=== PATIENT | female | born 1965 | race Caucasian/White ===

== ENCOUNTER 2019-11-20 11:51 | Outpatient (CLI) | payer BC, SELFPAY ==
[2019-11-20 12:11] LABS: Hematocrit 41.8 % (37.0-47.0)
== END 2019-11-20 11:52 | disposition home or self-care (01) ==
LOC: ANHSURGERY 11:52
PROVIDERS: Anesthesiology; PCP Internal Medicine; Visit Provider Student in an Organized Health Care Education/Training Program
DX: N93.9 Abnormal uterine and vaginal bleeding, unspecified (principal)
CPT/HCPCS: 36415; 85014; 85018

== ENCOUNTER 2019-11-26 00:20 | Outpatient (CLI) | payer BC, SELFPAY ==
[2019-11-26 20:03] LABS: SARS-CoV-2 RNA PCR Negative
== END 2019-11-26 00:21 | disposition home or self-care (01) ==
LOC: ANHCOVIDDT 00:21
PROVIDERS: PCP Internal Medicine; Visit Provider Student in an Organized Health Care Education/Training Program
DX: Z01.812 Encounter for preprocedural laboratory examination (principal); Z11.59 Encounter for screening for other viral diseases
CPT/HCPCS: 87635; C9803; U0003

== ENCOUNTER 2019-11-28 01:33 | Day surgery (SDC) | payer BC, SELFPAY ==
[2019-11-19 13:49] VITALS: BMI 23.6
--- NOTE | 2019-11-27 15:52 | PM.IMHP ---
H&P: HPI History of Present Illness Chief complaint: menorrhagia Narrative: Ashanti Tomas is a 53 year old female with a history of menorrhagia. Patient is likely perimenopausal. She was previously taking OCPs and self d/c'd OCPs in the spring. She was doing well and did not have a menses until 05/2019. This menses was extremely heavy and painful. She reported saturating numerous pads and at one point, she reported changing pads approximately every 15 minutes. She also reported the passage of large blood clots. Bleeding was so profuse that patient was seen in the ED. She was prescribed Lysteda with helped with acute management of menorrhagia. She was restarted on OCPs and has experienced regular menses since then, however, states that they are still extremely heavy. States that her menses are embarrassing and she soaks through tampons as well as outer clothing. She also reports PMS like symptoms and cramping week prior to and during menses. She desires surgical management with an endometrial ablation as next step in management. Reports feeling well today without complaints. Review of Systems Review of Systems: All systems reviewed & are unremarkable except as noted in HPI and below Constitutional: Constitutional: Reports as per HPI, Reports no additional constitutional complaints, Denies chills, Denies fever(s), Denies headache(s) and Denies night sweats Eyes: Eyes: Reports as per HPI and Reports no additional eye complaints ENT: Reports system reviewed and no additional complaints, except as documented, Reports as per HPI, Reports Normal hearing present and Denies headache(s) Cardiovascular: Cardiovascular: Reports as per HPI, Reports no additional cardiovascular complaints, Denies chest pain and Denies dyspnea Respiratory: Respiratory: Reports as per HPI, Reports no additional respiratory complaints, Denies cough and Denies dyspnea Gastrointestinal: Gastrointestinal: Reports as per HPI, Reports no additional gastrointestinal complaints, Denies abdominal pain, Denies change in bowel habits, Denies change in stool character, Denies nausea and Denies vomiting Genitourinary: Genitourinary: Reports no additional female genitourinary complaints, Reports as per HPI, Denies abnormal vaginal bleeding, Denies genital lesions, Reports menorrhagia, Denies hot flashes, Denies dyspareunia, Reports dysmenorrhea, Denies pelvic pain, Denies sexual dysfunction, Denies urinary incontinence, Denies vaginal discharge, Denies vaginal dryness and Denies vaginal odor Musculoskeletal: Musculoskeletal: Reports no additional musculoskeletal complaints and Reports as per HPI Integumentary/Breasts: Skin/Breast: Reports system reviewed and no additional complaints, except as docu, Reports as per HPI, Denies breast pain and Denies nipple discharge Neurologic: Reports system reviewed and no additional complaints, except as documented, Reports as per HPI, Reports Normal hearing present and Denies headache(s) Psychiatric: Psychiatric: Reports no additional psychiatric complaints, Reports as per HPI, Denies anxiety and Denies depression Endocrine: Endocrine: Reports no additional endocrine complaints and Reports as per HPI Hematologic/Lymphatic: Hematologic/Lymphatic: Reports no additional hematologic/lymphatic complaints and Reports as per HPI Allergic/Immunologic: Allergic/Immunologic: Reports no additional allergic/immunologic complaints and Reports as per HPI [facility] Social History Social History Smoking status: Never smoker Second hand tobacco smoke exposure: No Smoking end date: 05/23/86 Alcohol intake: current Drinks per week: 5 Substance use: never Gender identity (if verbalized by the patient): Female Spiritual care concerns: No Meds Home Medications and Allergies Home Medications Medication Instructions Recorded Confirmed Type calcium carbonate-vitamin D3 600 1 cap PO DAILY
--- NOTE | 2019-11-28 09:18 | P.PNAN_ITS ---
Anes - Initial Pre Proc Eval Procedure: Operation Date: 11/28/19 11:00 Proposed Procedures p Hysteroscopy Dilation And Curettage With Maddie, Possible MyoSure - Michaela Rossi MD Date/Time: 11/28/19 09:18 Surgeon: Michaela Rossi MD Pre Op Diagnosis: menorrhagia Patient Data Age: 53 Gender: F Height: 5 ft 8 in Weight: 70.31 kg Allergies Allergy/AdvReac Type Severity Reaction Status Date / Time No Known Allergies Allergy Mild Verified 11/20/19 11:25 Home Medications Medication Instructions Recorded Confirmed Type calcium carbonate-vitamin D3 600 1 cap PO DAILY 05/30/19 11/19/19 History mg calcium-200 unit capsule desog-e.estradiol/e.estradiol 0.15 1 tablet PO DAILY #84 tablet 10/11/19 11/19/19 Rx mg-0.02 mg(21)/e.estrad 0.01 mg(5) tablet loratadine-pseudoephedrine 1 tablet PO Q12H 11/19/19 11/19/19 History [Claritin-D 12 Hour] multivitamin 1 tablet PO DAILY 11/19/19 11/19/19 History Patient hx anesthesia problems: none Family hx anesthesia problems: none PMFSH Past Medical History Medical History IBS (irritable bowel syndrome) Vaginal delivery Surgical History Surgical History H/O colonoscopy No significant past surgical history [place] teeth removed Family History Family History Father Family history of hypercholesterolemia Hypertension Mother Family history of hypercholesterolemia Hypertension Grandparent Carcinoma of colon Family history of malignant neoplasm of breast Other Diabetes mellitus Social History Social History Smoking status: Never smoker Second hand tobacco smoke exposure: No Smoking end date: 05/23/86 Alcohol intake: current Drinks per week: 5 Substance use: never Gender identity (if verbalized by the patient): Female Spiritual care concerns: No Anes - Eval Final PreProcedure Day of Procedure 11/28/19 09:18 Patient weight: normal Heart: regular rate and rhythm Lungs: clear to auscultation Airway: Mallampati scale class II Neurological: alert and oriented Last oral intake: >/= 8 hours ASA classification: II Emergent: no Anesthetic plan: proceed Anesthesia type and monitoring: general GIVS and standard monitoring Informed Consent: The patient's anesthetic plan and its attendant risks and benefits were discussed with the patient/family/POA. Questions were solicited and answers provided to the satisfaction of the patient/family/POA.
[2019-11-28] MEDS: LACTATED RINGERS 1,000 ML 30 ML IV CONT ×2 (09:40→12:12)
[2019-11-28 09:45] VITALS: BP 129/69; PULSE 72; RESP 18; TEMP 37.6; O2SAT 100
[2019-11-28] MEDS: ACETAMINOPHEN 500 MG TABLET 1000 MG PO (09:59)
--- NOTE | 2019-11-28 10:59 | WPDHPUPDATE1 ---
History and Physical Update Update Date/Time: 11/28/19 10:59 History and Physical has been reviewed, including an updated exam of the patient. There are NO changes in the patient's condition. Risks, benefits, and alternatives have been discussed and questions answered. Patient agrees to proceed with procedure.
[2019-11-28] MEDS: KETOROLAC 30 MG/ML VIAL (*BKC) IV PUSH (11:34)
[2019-11-28 12:12] VITALS: BP 120/76; PULSE 62; RESP 16; O2SAT 99
[2019-11-28 12:45] VITALS: BP 140/73; PULSE 48; RESP 12
--- NOTE | 2019-11-28 12:50 | PM.PROC ---
Procedure Note - Detailed Date of procedure: 11/28/19 Pre-op diagnosis: menorrhagia Post-op diagnosis: same Procedure performed: Hysteroscopy Dilation and curettage Endometrial ablation with Maddie Description of procedure: The patient was taken to the operating room where she self-transferred to the operating room table. She was placed in dorsal supine position. Anesthesia was administered and found to be adequate. The patient was repositioned in dorsal lithotomy position with the use of Benjamin stirrups. She was prepped and draped in usual sterile fashion. A red rubber catheter was used to drain the bladder of 125 cc of yellow urine. A bivalve speculum was inserted into the vagina. The cervix was well visualized. The anterior lip of the cervix was grasped with a single-tooth tenaculum. A paracervical block was performed with 1% plain lidocaine. 5 cc of lidocaine was administered on either side for a total of 10 cc. The cervix was then sounded to 8 cm. The cervix was serially dilated to accommodate a hysteroscope. The hysteroscope was introduced into the endometrial cavity. A general survey was performed. A minimal amount of fluffy tissue was noted. Bilateral tubal ostia were visualized. In the midline of the endometrial cavity, there appeared to be some dense adhesions. Several pictures were taken. The hysteroscope was removed. A medium-size rigid curette was used to perform a curettage. All quadrants of the endometrial cavity were explored. A minimal amount of tissue was obtained and prepared to be sent to pathology for analysis. The Maddie endometrial ablation device was then opened on the sterile field. The appropriate settings were input on the hand-held device and the array was introduced into the endometrial cavity and deployed. The cervical balloon was insufflated. An integrity check was completed and passed by the Maddie console. After the integrity check was passed successfully, the ablation procedure started automatically and ran for the preset time of 120 seconds. After completion of the ablation procedure, the array was collapsed and the cervical balloon was desufflated. The device was removed. The tenaculum was removed from the anterior lip of the cervix. A moderate amount of brisk bleeding from one of the tenaculum puncture sites was noted. Monsel's was applied, however, insufficient. Two [id number] sutures using 3-0 Vicryl were placed ensuring excellent hemostasis. The remainder of the vagina was cleansed and dried and the speculum was removed. The patient was cleansed and dried and taken out of the dorsal lithotomy position. She was awakened from anesthesia without difficulty and transferred to the recovery room in stable condition. The patient tolerated the procedure well. All sponge, lap, and instrument counts were correct at the end of the procedure. Anesthesia: MAC Surgeon: Michaela Rossi MD Estimated blood loss (mL): 30 IV fluids (mL): 1,000 Urine output (mL): 125 Drains: No Packing: No Pathology: yes (endometrial curetting) Complications: No immediate complications Condition: stable Disposition: same day Findings: Hysteroscopic fluids: 700cc in/650cc out
[2019-11-28 13:05] VITALS: BP 142/76; PULSE 48; RESP 12
== END 2019-11-28 13:17 | disposition home or self-care (01) ==
PROVIDERS: PCP Internal Medicine; Visit Provider Student in an Organized Health Care Education/Training Program
PROC: 0U5B8ZZ Destruction of Endometrium, Via Natural or Artificial Opening Endoscopic (ICD-10-PCS; CPT 58563; principal; 2019-11-28 11:00)
DX: N92.0 Excessive and frequent menstruation with regular cycle (principal); N84.0 Polyp of corpus uteri; K58.9 Irritable bowel syndrome, unspecified
CPT/HCPCS: 58563; 87635; 88305; A9270; C9803; J1885; J2250; J2405; J2704; J3010; J7030; J7120; U0003

== ENCOUNTER → 2020-03-27 16:14 | Outpatient (CLI) | payer BC, SELFPAY ==
--- NOTE | ~2020-03-27 | MM_ITS ---
EXAMINATION: MM screening sara BI w jered HISTORY: Screening TECHNIQUE: Craniocaudal and mediolateral oblique 3-D tomosynthesis images were obtained and synthetic 2-D images were generated. CAD analysis was submitted and interpreted. COMPARISON: Comparison to multiple prior studies sequentially, with oldest reviewed study dated 08/05. BREAST PARENCHYMAL COMPOSITION: The breasts are extremely dense, which lowers the sensitivity of mamm ography. FINDINGS: There is no evidence of suspicious mass, calcification, or architectural distortion to sugg est malignancy in either breast. There has been no suspicious interval change. IMPRESSION: 1. No mammographic evidence of malignancy. 2. Recommend routine screening mammography in one year. BI-RADS Category 1: Negative Reviewed, dictated and finalized at location A. [employer]
== END ==
PROVIDERS: PCP Internal Medicine; Visit Provider Student in an Organized Health Care Education/Training Program
DX: Z12.31 Encounter for screening mammogram for malignant neoplasm of breast (principal)
CPT/HCPCS: 77063; 77067

== ENCOUNTER → 2020-12-01 11:19 | Outpatient (CLI) | payer BC, SELFPAY ==
--- NOTE | ~2020-12-01 | US_ITS ---
EXAMINATION: US pelvic complete w TV EXAM DATE: 12/01/2020 11:51 INDICATION: N93.9 - Abnormal uterine and vaginal bleeding, unspecified . Ablation one year ago. TECHNIQUE: Pelvic transabdominal sonogram was performed. There are multiple grayscale and Doppler im ages available for interpretation. Comparison is made to prior examination from 06/11/2019. FINDINGS: Uterus measures 9.7 x 4.6 x 6.3 cm, probably with several small fibroids, up to 1.9 cm. En dometrial stripe measures 5 mm, within normal limits. There is no free pelvic fluid. Right adnexa: The ovary measures 2.4 x 1.2 x 2.4 cm and is morphologically normal. Ovarian vascular f low confirmed. Left adnexa: The ovary measures 3.1 x 1.7 x 3.7 cm and is morphologically normal, contains the domina nt physiologic follicle. Ovarian vascular flow confirmed. IMPRESSION: 1. Small fibroids. Reviewed, dictated and finalized at location A. IMPRESSION: 1. Small fibroids.
== END ==
PROVIDERS: PCP Internal Medicine; Visit Provider Student in an Organized Health Care Education/Training Program
DX: N93.9 Abnormal uterine and vaginal bleeding, unspecified (principal); D25.9 Leiomyoma of uterus, unspecified
CPT/HCPCS: 76830; 76856

== ENCOUNTER 2021-01-26 14:30 | Emergency (ER) | payer BC, SELFPAY ==
--- NOTE | ~2021-01-26 | XR_ITS ---
EXAMINATION: XR wrist LT min 3V DATE: 01/26/2021 14:43 INDICATION: Left wrist pain and swelling. Fall. TECHNIQUE: 4 views of left wrist were obtained. COMPARISON: None. FINDINGS: There is a comminuted fracture of distal radius with involvement of the distal articular morales rface. There is less than 1 mm step-off at the distal articular surface. Ulnar styloid is intact. The re is mild osteoarthritis of first carpometacarpal joint. IMPRESSION: 1. Comminuted fracture of distal radius in near-anatomic alignment. Reviewed, dictated and finalized at location A.
[2021-01-26 14:34] VITALS: BP 156/85; PULSE 67; RESP 20; TEMP 36.9; O2SAT 100
--- NOTE | 2021-01-26 15:05 | ED.GENADULT ---
HPI - General Adult General Chief complaint: Extremity Injury, Upper Stated complaint: lt wrist injury Source: patient Mode of arrival: ambulatory Limitations: no limitations History of Present Illness HPI narrative: Patient is a 55-year-old female presents to urgent care via POV for evaluation of a left wrist injury that occurred yesterday while running. Patient reports she excellently tripped on a crack causing her to fall on her left outstretched hand. She reports her wrist is swollen, painful, and bruised. Symptoms improved with ice and ibuprofen. Movement worsens pain. She describes pain at rest as a dull ache and a shooting pain with movement. Current pain level is 6-7 out of 10 on a pain scale. Related Data Home Medications Medication Instructions Recorded Confirmed calcium carbonate-vitamin D3 600 1 cap PO DAILY 05/30/19 11/28/19 mg calcium-200 unit capsule multivitamin 1 tablet PO DAILY 11/19/19 11/28/19 Allergies Allergy/AdvReac Type Severity Reaction Status Date / Time No Known Allergies Allergy Mild Verified 11/20/20 10:39 Review of Systems Review of Systems: Pertinent negatives: fever, chills, sweats, change in appetite, poor p.o. intake, malaise, rash, warmth, numbness, tingling, loss of sensation, deformity, decreased range of motion, weakness, difficulty with ambulation/coordination, nausea, vomiting, lymphadenopathy, shortness of breath, chest pain, heart palpitations, and heart murmur. [facility] Past Medical History Medical History IBS (irritable bowel syndrome) Vaginal delivery Surgical History Surgical History H/O colonoscopy No significant past surgical history S/P endometrial ablation [place] teeth removed Family History Family History Father Family history of hypercholesterolemia Hypertension Mother Family history of hypercholesterolemia Hypertension Grandparent Carcinoma of colon Family history of malignant neoplasm of breast Other Diabetes mellitus Social History Social History Smoking status: Never smoker Second hand tobacco smoke exposure: No Smoking end date: 05/23/86 Alcohol intake: current Drinks per week: 5 Substance use: never Gender identity (if verbalized by the patient): Female Spiritual care concerns: No Exam Narrative: GENERAL: Well-appearing, well-nourished, and in no acute distress. HEAD: Normocephalic, atraumatic. NECK: Supple. No Lymphadenopathy or nuchal rigidity appreciated. CHEST: Bilateral lung carlos are clear to auscultation. No respiratory distress. No evidence of cough or pleuritic cp upon examination. HEART: Regular rate and rhythm. No murmur, gallop, or rub heard. EXTREMITIES: Lateral aspect of left wrist is moderately edematous. There is also a small contusion noted to lateral aspect of left wrist. Mild pain is elicited with all active/passive ROM. No evidence of decreased ROM, cyanosis, laceration, abrasion, deformity, rash, or puncture. No evidence of dislocation, ligament laxity, effusion, or pain at rest. Pulses palpable at 2+, strength 5/5, and cap refill < 3 seconds in affected extremity. DTRs normal. Gait normal. SKIN: Warm, dry, no rash. NEURO: No focal deficits. Alert and oriented x3. SPECIAL OBSERVATIONS: Smiling. Laughing Course Vital Signs Vital signs: Vital Signs Temperature 98.4 F 01/26/21 14:34 Pulse Rate 01/26/21 14:34 Respiratory Rate 01/26/21 14:34 Blood Pressure 156/85 H 01/26/21 14:34 Pulse Oximetry 100 01/26/21 14:34 Temperature 98.4 F 01/26/21 14:34 Pulse Rate 01/26/21 14:34 Respiratory Rate 01/26/21 14:34 Blood Pressure 156/85 H 01/26/21 14:34 Pulse Oximetry 100 01/26/21 14:34 Procedures Ort
== END 2021-01-26 15:36 | disposition home or self-care (01) ==
PROVIDERS: Emergency Provider Nurse Practitioner Family; PCP Internal Medicine
DX: S52.502A Unspecified fracture of the lower end of left radius, initial encounter for closed fracture (principal); W01.0XXA Fall on same level from slipping, tripping and stumbling without subsequent striking against object, initial encounter
CPT/HCPCS: 29125; 73110; 99214; A4565; G0463

== ENCOUNTER → 2021-06-02 16:40 | Outpatient (CLI) | payer BC, SELFPAY ==
--- NOTE | ~2021-06-02 | MM_ITS ---
EXAMINATION: MM screening sara BI w jered HISTORY: Screening TECHNIQUE: Craniocaudal and mediolateral oblique 3-D tomosynthesis images were obtained and synthetic 2-D images were generated. CAD analysis was submitted and interpreted. COMPARISON: Comparison to multiple prior studies sequentially, with oldest reviewed study dated Gerhard rison to multiple prior studies sequentially, with oldest reviewed study dated 10/17/2013. . BREAST PARENCHYMAL COMPOSITION: The breasts are heterogenously dense, which may obscure small masses FINDINGS: There is no evidence of suspicious mass, calcification, or architectural distortion to sugg est malignancy in either breast. There has been no suspicious interval change. IMPRESSION: 1. No mammographic evidence of malignancy. 2. Recommend routine screening mammography in one year. BI-RADS Category 1: Negative Reviewed, dictated and finalized at location A. CRE[employer] MAN
== END ==
PROVIDERS: Visit Provider Student in an Organized Health Care Education/Training Program
DX: Z12.31 Encounter for screening mammogram for malignant neoplasm of breast (principal)
CPT/HCPCS: 77063; 77067

== ENCOUNTER → 2022-09-20 16:16 | Outpatient (CLI) | payer BC, SELFPAY ==
--- NOTE | ~2022-09-20 | MM_ITS ---
EXAMINATION: MM screening [facility] BI w jered HISTORY: Screening mammogram TECHNIQUE: Craniocaudal and mediolateral oblique 3-D tomosynthesis images were obtained and synthetic 2-D images were generated. CAD analysis was submitted and interpreted. COMPARISON: 06/02/2021, 03/27/2020, 09/12/2018 BREAST PARENCHYMAL COMPOSITION:The breasts are extremely dense, which lowers the sensitivity of mammo graphy. FINDINGS: No suspicious mass, calcification, or architectural distortion are identified in either matthew ast to suggest malignancy. There has been no suspicious interval change. IMPRESSION: No mammographic evidence of malignancy. Recommend routine screening mammography in one year. BI-RADS Category 1: Negative Reviewed, dictated and finalized at location .
== END ==
PROVIDERS: PCP Registered Nurse; Visit Provider Registered Nurse
DX: Z12.31 Encounter for screening mammogram for malignant neoplasm of breast (principal)
CPT/HCPCS: 77063; 77067

== ENCOUNTER 2022-11-02 00:46 | Day surgery (SDC) | payer BC, SELFPAY ==
[2022-10-25 13:08] VITALS: BMI 22.9
[2022-11-02 08:15] VITALS: BP 125/90; PULSE 78; RESP 16; TEMP 36.3; O2SAT 97; BMI 22.4
--- NOTE | 2022-11-02 08:28 | WPDANESEPPF ---
Anes - Initial Pre Proc Eval Procedure: Operation Date: 11/02/22 09:30 Proposed Procedures p Screening Colonoscopy - Gabriel Sanchez MD Date/Time: 11/02/22 08:28 Surgeon: Gabriel Sanchez MD Pre Op Diagnosis: neoplasm screening Patient Data Age: 56 Gender: F Height: 1.75 m Weight: 69.1 kg Last Vital Signs Temp 36.3 C L 11/02/22 08:15 Pulse 78 11/02/22 08:15 Resp 16 11/02/22 08:15 BP 125/90 11/02/22 08:15 Pulse Ox 97 11/02/22 08:15 O2 Del Method Room Air 11/02/22 08:15 Allergies Allergy/AdvReac Type Severity Reaction Status Date / Time No Known Allergies Allergy Mild Verified 11/02/22 08:20 Home Medications Medication Instructions Recorded Confirmed Type calcium carbonate 600 mg-vitamin 1 cap PO DAILY 05/30/19 11/02/22 History D3 5 mcg (200 unit) capsule (Calcium 600 + D(3)) multivitamin 1 tablet PO DAILY 11/19/19 11/02/22 History loratadine 10 mg tablet (Allergy 10 mg PO DAILY 10/25/22 11/02/22 History Relief (loratadine)) Patient hx anesthesia problems: none Family hx anesthesia problems: none Results Review: All pre-operative results and documents have been reviewed as part of the pre-operative evaluation. [facility] Past Medical History Medical History IBS (irritable bowel syndrome) Vaginal delivery Surgical History Surgical History H/O colonoscopy No significant past surgical history S/P endometrial ablation [place] teeth removed Family History Family History Father Family history of hypercholesterolemia Hypertension Mother Family history of hypercholesterolemia Hypertension Grandparent Carcinoma of colon Family history of malignant neoplasm of breast Other Diabetes mellitus Social History Social History (Updated 08/25/22 @ 11:15 by Eliana Hills MA) Smoking status: Former smoker Second hand tobacco smoke exposure: No Smoking end date: 05/23/86 Alcohol intake: current Drinks per week: 5 Substance use: never Substance use type: does not use Lack of Transportation: No Lack of Food: Never True Current Housing: I Have Housing Concerned About Future Housing: No Difficulty Paying Gas/Electric Bills: No Difficulty Paying for Meds: No Currently Unemployed: No Education: Master's Degree or Higher Difficulty w/ Childcare or Family Care: No Living arrangements: with family Occupation/Education: occupation Gender identity (if verbalized by the patient): Female Sexual Orientation (if Verbalized by the Patient): Straight or Heterosexual Spiritual care concerns: No Anes - Eval Final PreProcedure Day of Procedure 11/02/22 08:28 Patient weight: normal Heart: regular rate and rhythm Lungs: clear to auscultation Airway: Mallampati scale class II Neurological: alert and oriented Last oral intake: >/= 8 hours ASA classification: II Emergent: no Anesthetic plan: proceed Anesthesia type and monitoring: general GIVS and standard monitoring Results Review: All pre-operative results and documents have been reviewed as part of the pre-operative evaluation. Informed Consent: The patient's anesthetic plan and its attendant risks and benefits were discussed with the patient/family/POA. Questions were solicited and answers provided to the satisfaction of the patient/family/POA.
[2022-11-02] MEDS: LACTATED RINGERS 1,000 ML 150 ML IV CONT (08:33)
[2022-11-02 10:10] VITALS: BP 93/55; PULSE 63; RESP 21; O2SAT 100
[2022-11-02 10:20] VITALS: BP 120/70; PULSE 62; RESP 18; O2SAT 100
[2022-11-02 10:30] VITALS: BP 106/70; PULSE 57; RESP 18; O2SAT 95
--- NOTE | 2022-11-04 12:14 | PM.IMHP ---
H&P: HPI History of Present Illness Date/Time: 11/04/22 12:14 Chief Complaint: Neoplasia screening. was performed on 10/28/2022. Narrative: This is a 56-year-old white female patient presents for neoplasia screening colonoscopy. Patient reports her current weight appetite and bowel movements are normal. Patient denies abdominal pain. She has had no bleeding. Family history noncontributory. Review of Systems Review of Systems: Review of systems noncontributory. [facility] Past Medical History Medical History IBS (irritable bowel syndrome) Vaginal delivery Surgical History Surgical History H/O colonoscopy No significant past surgical history S/P endometrial ablation [place] teeth removed Family History Family History Father Family history of hypercholesterolemia Hypertension Mother Family history of hypercholesterolemia Hypertension Grandparent Carcinoma of colon Family history of malignant neoplasm of breast Other Diabetes mellitus Social History Social History (Updated 08/25/22 @ 11:15 by Eliana Hills MA) Smoking status: Former smoker Second hand tobacco smoke exposure: No Smoking end date: 05/23/86 Alcohol intake: current Drinks per week: 5 Substance use: never Substance use type: does not use Lack of Transportation: No Lack of Food: Never True Current Housing: I Have Housing Concerned About Future Housing: No Difficulty Paying Gas/Electric Bills: No Difficulty Paying for Meds: No Currently Unemployed: No Education: Master's Degree or Higher Difficulty w/ Childcare or Family Care: No Living arrangements: with family Occupation/Education: occupation Gender identity (if verbalized by the patient): Female Sexual Orientation (if Verbalized by the Patient): Straight or Heterosexual Spiritual care concerns: No Meds Home Medications and Allergies Home Medications Medication Instructions Recorded Confirmed Type calcium carbonate 600 mg-vitamin 1 cap PO DAILY 05/30/19 11/02/22 History D3 5 mcg (200 unit) capsule (Calcium 600 + D(3)) multivitamin 1 tablet PO DAILY 11/19/19 11/02/22 History loratadine 10 mg tablet (Allergy 10 mg PO DAILY 10/25/22 11/02/22 History Relief (loratadine)) Allergies Allergy/AdvReac Type Severity Reaction Status Date / Time No Known Allergies Allergy Mild Verified 11/02/22 08:20 Exam Narrative: Physical exam reveals patient to be alert. Vital signs stable. HEENT exam is unremarkable. Patient anicteric. Lungs are clear to auscultation and percussion. Heart is without murmur or extra sounds. Abdomen bowel sounds present soft nontender with no organomegaly. Digital external rectal exam normal. Assessment and Plan Assessment and plan (1) Encounter for screening colonoscopy: Code(s): Z12.11 - Encounter for screening for malignant neoplasm of colon Status: Acute Assessment and Plan: Screening colon possibly to be performed 10/28/2022. Further recommendations will be given procedure note subsequently.
== END 2022-11-02 10:32 | disposition home or self-care (01) ==
PROVIDERS: PCP Internal Medicine; Referring Provider Registered Nurse; Visit Provider Internal Medicine Gastroenterology
PROC: 0DJD8ZZ Inspection of Lower Intestinal Tract, Via Natural or Artificial Opening Endoscopic (ICD-10-PCS; CPT 45378; principal; 2022-11-02 09:30)
DX: Z12.11 Encounter for screening for malignant neoplasm of colon (principal); K64.8 Other hemorrhoids; Z87.891 Personal history of nicotine dependence
CPT/HCPCS: 45378; J2704; J7120

== ENCOUNTER 2024-01-06 10:42 | Outpatient (CLI) | payer BC, SELFPAY ==
--- NOTE | ~2024-01-06 | MM_ITS ---
EXAMINATION: MM screening sara BI w jered HISTORY: Screening TECHNIQUE: Craniocaudal and mediolateral oblique 3-D tomosynthesis images were obtained and synthetic 2-D images were generated. CAD analysis was submitted and interpreted. COMPARISON: Comparison to multiple prior studies sequentially, with oldest reviewed study dated 06/2015. BREAST PARENCHYMAL COMPOSITION: Dense: The breasts are extremely dense, which lowers the sensitivity of mammography. FINDINGS: There is no evidence of suspicious mass, calcification, or architectural distortion to sugg est malignancy in either breast. There has been no suspicious interval change. IMPRESSION: 1. No mammographic evidence of malignancy. 2. Recommend routine screening mammography in one year. BI-RADS Category 1: Negative Reviewed, dictated and finalized at location B.
== END 2024-01-06 10:43 ==
LOC: MICIMG 10:43
PROVIDERS: PCP Internal Medicine; Visit Provider Nurse Practitioner Obstetrics & Gynecology
DX: Z12.31 Encounter for screening mammogram for malignant neoplasm of breast (principal)
CPT/HCPCS: 77063; 77067

== ENCOUNTER 2025-01-08 10:53 | Outpatient (CLI) | payer OTHER, SELFPAY ==
--- NOTE | ~2025-01-08 | MM_ITS ---
EXAMINATION: MM screening sara BI w jered HISTORY: Screening mammogram TECHNIQUE: Craniocaudal and mediolateral oblique 3-D tomosynthesis images were obtained and synthetic 2-D images were generated. CAD analysis was submitted and interpreted. COMPARISON: 01/06/2024, 09/20/2022, 06/02/2021 BREAST PARENCHYMAL COMPOSITION:Dense: The breasts are extremely dense, which lowers the sensitivity of mammography. FINDINGS: No suspicious mass, calcification, or architectural distortion are identified in either breast to suggest malignancy. There has been no suspicious interval change. IMPRESSION: No mammographic evidence of malignancy. Recommend routine screening mammography in one year. BI-RADS Category 1: Negative Reviewed, dictated and finalized at location .
== END 2025-01-08 10:54 | disposition home or self-care (01) ==
LOC: MICIMG 10:53
PROVIDERS: PCP Nurse Practitioner Obstetrics & Gynecology; Visit Provider Nurse Practitioner Obstetrics & Gynecology
DX: Z12.31 Encounter for screening mammogram for malignant neoplasm of breast (principal)
CPT/HCPCS: 77063; 77067